=== PATIENT | male | born 1965 | race American Indian/Alaskan Native ===

== ENCOUNTER 2020-09-16 08:30 | Emergency (ER) | payer SELFPAY ==
[2020-09-16 09:15] VITALS: BP 118/72
--- NOTE | 2020-09-16 11:47 | Emergency Department Report ---
ED Eye Problem HPI - General Chief complaint: Eye Problems Stated complaint: POSS EYE INFECTION Time Seen by Provider: 09/16/20 10:51 Source: patient Mode of arrival: Ambulatory Limitations: No Limitations - History of Present Illness Initial comments: 55-year-old male presents to the ER today with complaints of left eye redness. Patient states that symptoms started about 3 to 4 days ago. Patient states that he woke up with his left eye red, and irritated. He states that it has had increased tearing, and has been matting and crusting in the morning. He denies any thick yellow-green discharge from the eye. He states that when he touches it by it hurts but otherwise there is no pain with movement of the eye. He denies any photosensitivity. He states that about a week ago while he was washing some vegetables at work some of the water went into his eye, but at the time he had no symptoms. Otherwise he denies any other specific injury to his eye. He does not wear glasses or contacts. He does not do any grinding or welding. He denies any vision changes, headache, dizziness, URI symptoms or any ill contacts. MD chief complaint: eye pain, eye redness, foreign body -: days(s) (3-4) - Related Data Previous Rx's Medication Instructions Recorded Last Taken Type Ciprofloxacin HCl [Ciloxan] 2 drop OP Q4HR 7 Days #1 bottle 09/16/20 Unknown Rx Allergies Allergy/AdvReac Type Severity Reaction Status Date / Time No Known Allergies Allergy Unverified 09/16/20 09:15 ED Review of Systems ROS: Stated complaint: POSS EYE INFECTION Other details as noted in HPI Comment: All other systems reviewed and negative Constitutional: denies: chills, fever Eyes: eye pain, eye discharge. denies: vision change ENT: other (eye redness ). denies: ear pain, throat pain Respiratory: denies: cough, shortness of breath, SOB with exertion, SOB at rest, wheezing Cardiovascular: denies: chest pain, palpitations Gastrointestinal: denies: abdominal pain, nausea, diarrhea, constipation, hematemesis, melena, hematochezia Genitourinary: denies: urgency, dysuria, frequency, hematuria, discharge, testicular pain, testicular mass Musculoskeletal: denies: back pain, joint swelling, arthralgia Skin: denies: rash, lesions, change in color, change in hair/nails, pruritus Neurological: denies: headache, weakness, paresthesias, confusion, abnormal gait, vertigo Psychiatric: denies: anxiety, depression, auditory hallucinations, visual hallucinations, homicidal thoughts, suicidal thoughts Hematological/Lymphatic: denies: easy bleeding, easy bruising, swollen glands ED Past Medical Hx - Past Medical History Previous Medical History?: No - Surgical History Past Surgical History?: No - Medications Home Medications: Home Medications Medication Instructions Recorded Confirmed Last Taken Type Ciprofloxacin HCl [Ciloxan] 2 drop OP Q4HR 7 Days #1 bottle 09/16/20 Unknown Rx ED Physical Exam - General Limitations: No Limitations General appearance: alert, in no apparent distress - Head Head exam: Present: atraumatic, normocephalic, normal inspection - Eye Eye exam: Present: PERRL, EOMI, conjunctival injection (mild injection noted to cornea left eye with mild swelling to sclera ). Absent: scleral icterus, periorbital swelling, periorbital tenderness Pupils: Present: other (roldan lamp exam shows no apparent corneal abrasion, dendritic lesions or ulcerations and no apparent foreign body) - Expanded Eye Exam Expanded Sclera/Conjunctival: Injection: Left Visual acuity (R) = 20/: 30 Visual acuity (L) = 20/: 25 With correction: No - ENT ENT exam: Present: normal exam, mucous membranes moist - Neck Neck exam: Present: normal inspection, full ROM - Respiratory Respiratory exam: Present: normal lung sounds bilaterally. Absent: respiratory distress, wheezes, rales, rhonchi - Cardiovascular Cardiovascular Exam: Present: regular rate, normal rhythm, normal heart sounds - Neurological Exam Neurological exam: Present: alert, oriented X3, CN II-XII intact, normal gait - Psychiatric Psychiatric exam: Present: normal affect, normal mood - Skin Skin exam: Present: intact ED Course Vital Signs 09/16/20 09:11 Temperature 97.7 F Pulse Rate 55 L Respiratory 18 Rate Blood Pressure 118/72 [Left] O2 Sat by Pulse 97 Oximetry ED Medical Decision Making - Medical Decision Making 55-year-old male presents to the ER today with complaints of left eye redness. Patient states that symptoms started about 3 to 4 days ago. Patient states that he woke up with his left eye red, and irritated. He states that it has had increased tearing, and has been matting and crusting in the morning. He denies any thick yellow-green discharge from the eye. He states that when he touches it by it hurts but otherwise there is no pain with movement of the eye. He denies any photosensitivity. He states that about a week ago while he was washing some vegetables at work some of the water went into his eye, but at the time he had no symptoms. Otherwise he denies any other specific injury to his eye. He does not wear glasses or contacts. He does not do any grinding or welding. He denies any vision changes, headache, dizziness, URI symptoms or any ill contacts. 1220; No apparent foreign body noted to the left eye on exam. He has no periorbital swelling or cellulitis and he has no pain with eyeball movement and therefore no concern for orbital cellulitis at this time. Roldan lamp exam shows no apparent corneal abrasions, dendritic lesions or ulcerations. Patient has a very good visual acuity with left eye at 20/25 and right eye 20/30 in both eyes at 20/20. Suspect patient symptoms could be related to either viral or bacterial conjunctivitis at this time. Patient will be started on antibiotic eyedrops but patient given strict instructions to follow-up with the eyelet operator listed on his discharge instructions if his symptoms does not seem to be getting better or return to the ER if symptoms appear to be worsening. Patient expressed understanding of instructions and agree with plan. Patient stable at time of discharge. Critical care attestation.: If time is entered above; I have spent that time in minutes in the direct care of this critically ill patient, excluding procedure time. ED Disposition Clinical Impression: Conjunctivitis Disposition: DC-01 TO HOME OR SELFCARE Is pt being admited?: No Does the pt Need Aspirin: No Condition: Stable Instructions: Bacterial Conjunctivitis, Adult, [id number], Viral Conjunctivitis, Adult Additional Instructions: Use the antibiotic eye drops as prescribed. Wash hands frequently especially if you touch your eye. Follow up with eyelet operator listed in discharge instructions in 1 week if symptoms persist. Return to the ER if your symptoms changes or worsens in any way. Prescriptions: Ciprofloxacin HCl [Ciloxan] 2 drop OP Q4HR 7 Days #1 bottle Referrals: SHERON MARSH MD [Staff Physician] - 7-10 days ([facility]) Time of Disposition: 12:19
[2020-09-16] MEDS ORDERED: FLUORESCEIN 1 MG STRIP OP ONE (11:53)
[2020-09-16] MEDS ORDERED: TETRACAINE 0.5% OPHTH SOLN 4ML OU STA (11:53)
== END 2020-09-16 12:41 | disposition home or self-care (01) ==
LOC: ED 08:30
DX: H10.9 Unspecified conjunctivitis (principal)
CPT/HCPCS: 99283